=== PATIENT | female | born 1945 | race Caucasian/White ===

== ENCOUNTER 2019-01-21 21:22 | Inpatient (IN) | payer MEDICARE, OTHER ==
[~2019-01-21] VITALS: Ht 144.8 cm; Wt 81.6 kg
--- NOTE | 2019-01-21 21:37 | NUR ---
chest pain- [facility] to ER after family called 911 for chest pain
[2019-01-21 21:52] LABS: BASOPHILS # (AUTO) 0.1 /CMM (0.0-0.2); BASOPHILS % (AUTO) 1.4 % (0.0-2.0); EOSINOPHILS % (AUTO) 1.4 % (0.0-6.0); HEMATOCRIT 35 % (33-45); HEMOGLOBIN 11.8 g/dL (11.5-14.8); LYMPHOCYTES % (AUTO) 32.6 % (20.0-44.0); MEAN CORPUSCULAR HGB CONC 33 g/dl (31.0-36.0); MEAN CORPUSCULAR VOLUME 87 fL (82-100); MONOCYTES # (AUTO) 0.5 /CMM (0.1-1.30); MONOCYTES % (AUTO) 8.6 % (2.0-12.0); NEUTROPHILS # (AUTO) 3.4 /CMM (1.8-8.9); PLATELET COUNT (AUTO) 261 /CMM (150-450); RED BLOOD CELL COUNT(AUTO) 4.06 MIL/uL (4.0-5.2)
[2019-01-21 22:03] LABS: CALCIUM, SERUM 8.7 mg/dL (8.5-10.1); CARBON DIOXIDE 26 mmol/L (21-32); CHLORIDE 102 mmol/L (98-107); CREATININE 0.9 mg/dL (0.6-1.3); GLUCOSE 169 mg/dL (74-106); POTASSIUM 3.3 mmol/L (3.5-5.1); SODIUM SERUM 139 mmol/L (136-145); UREA NITROGEN, BLOOD 17 mg/dL (7-18)
[2019-01-21 22:11] LABS: ALANINE AMINOTRANSFERASE 26 U/L (12-78); ALBUMIN 3.7 g/dL (3.4-5.0); ALKALINE PHOSPHATASE 87 U/L (46-116); ASPARTATE AMINOTRANSFERASE 14 U/L (15-37); BILIRUBIN,TOTAL 0.2 mg/dL (0.2-1.0); TOTAL PROTEIN, SERUM 8.1 g/dL (6.4-8.2)
--- NOTE | 2019-01-21 22:33 | NUR ---
TELE BED 321-2 GIVEN
[2019-01-21] MEDS ORDERED: NITROGLYCERIN PACKET 1 GM PACKET ONE (22:43)
[2019-01-21] MEDS ORDERED: ACETAMINOPHEN 325 MG TABLET ONE (22:43)
--- NOTE | 2019-01-21 22:46 | NUR ---
[facility] CALLED. SENIOR HEALTH EDUCATOR ON THE PHONE WITH ER
--- NOTE | 2019-01-21 22:50 | NUR ---
Pt c/o 05/02 headache with associated hypertension bp 179/88. Dr Davis at bedside for evaluation. Patient medicated as ordered with tylenol 650 and nitrobid 1 gm.
[2019-01-21] MEDS ORDERED: ONDANSETRON HCL/PF 4 MG/2 ML VIAL IVP PRN (23:00)
[2019-01-21] MEDS ORDERED: ACETAMINOPHEN 325 MG TABLET PO ONE (23:00)
[2019-01-21] MEDS ORDERED: NITROGLYCERIN 0.4 MG/TAB BOTTLE SL PRN (23:00)
[2019-01-21] MEDS ORDERED: MORPHINE SULFATE INJ 2 MG/ML DISP.SYRIN IV PRN (23:00)
[2019-01-21] MEDS ORDERED: NITROGLYCERIN PACKET 1 GM PACKET TD ONE (23:00)
--- NOTE | 2019-01-21 23:00 | NUR ---
Report given to nurse Mixon for continuity of care
[2019-01-21 23:15] VITALS: BP 143/79
--- NOTE | 2019-01-21 23:15 | NUR ---
DEPARTMENT MANAGER ADMITTING NOTES RECEIVED PT FROM ER VIA MORALES WITH FAMILY AT BEDSIDE. PT A/O X4, VENEZUELAN SPEAKING. NO S/S OF ACUTE DISTRESS OR SOB NOTED. RESPIRATIONS EVEN AND UNLABORED. PT ABLE TO AMBULATE TO BATHROOM. ORIENTED PT AND FAMILY TO FLOOR. PT ON TELE MONITOR @ [facility] 83. PT DENIES ANY PAIN AT THIS TIME. CALL LIGHT WITHIN REACH. WILL CONTINUE TO MONITOR.
--- NOTE | 2019-01-21 23:30 | NUR ---
ACTUARIAL CONSULTANT NOTES PT REFUSED INITIAL SKIN ASSESSMENT, PT STATES SHE DOES NOT HAVE ANY WOUNDS OR REDNESS.
[2019-01-22] MEDS: CARVEDILOL 6.25 MG TABLET PO SCH ×2 (00:27→10:35)
[2019-01-22] MEDS ORDERED: POTASSIUM CHLORIDE 20 MEQ TAB.PRT.SR PO ONE (01:00)
[2019-01-22 04:00] VITALS: BP 121/61
[2019-01-22 04:57] LABS: BASOPHILS # (AUTO) 0.1 /CMM (0.0-0.2); EOSINOPHILS % (AUTO) 1.5 % (0.0-6.0); HEMATOCRIT 34 % (33-45); HEMOGLOBIN 11.2 g/dL (11.5-14.8); LYMPHOCYTES # (AUTO) 2.4 /CMM (0.8-4.8); MEAN CORPUSCULAR HGB CONC 34 g/dl (31.0-36.0); MEAN CORPUSCULAR VOLUME 88 fL (82-100); MONOCYTES # (AUTO) 0.5 /CMM (0.1-1.30); MONOCYTES % (AUTO) 8.2 % (2.0-12.0); NEUTROPHILS # (AUTO) 3.3 /CMM (1.8-8.9); NEUTROPHILS % (AUTO) 51.3 % (43.0-81.0); PLATELET COUNT (AUTO) 263 /CMM (150-450); RED BLOOD CELL COUNT(AUTO) 3.83 MIL/uL (4.0-5.2); WHITE BLOOD COUNT (AUTO) 6.4 K/uL (4.3-11.0)
[2019-01-22 05:07] LABS: CALCIUM, SERUM 8.7 mg/dL (8.5-10.1); CARBON DIOXIDE 27 mmol/L (21-32); CHLORIDE 105 mmol/L (98-107); CREATININE 0.7 mg/dL (0.6-1.3); GLUCOSE 97 mg/dL (74-106); PHOSPHORUS 4.2 mg/dL (2.5-4.9); POTASSIUM 4.6 mmol/L (3.5-5.1); SODIUM SERUM 140 mmol/L (136-145); UREA NITROGEN, BLOOD 18 mg/dL (7-18)
[2019-01-22 05:22] LABS: CHOLESTEROL 314 mg/dL (<200); HDL CHOLESTEROL 47 mg/dL (40-60); LDL 219 mg/dL (0-99); TRIGLYCERIDES 225 mg/dL (30-150)
--- NOTE | 2019-01-22 06:54 | NUR ---
NETWORK SECURITY ADMINISTRATOR NOTES PT IN BED SLEEPING BUT EASILY AWOKEN VERBALLY OR BY TOUCH. FAMILY AT BEDSIDE. PT A/O X4, PERUVIAN SPEAKING. NO S/S OF ACUTE DISTRESS OR SOB NOTED THROUGHOUT SHIFT. RESPIRATIONS EVEN AND UNLABORED. SAFETY MEASURES IN PLACE, BED IN LOW LOCKED POSITION WITH SIDERAILS UP X2. PT ON TELE MONITOR @ SINUS 77. PT DENIES ANY PAIN AT THIS TIME. CALL LIGHT WITHIN REACH. WILL ENDORSE TO ONCOMING NURSE FOR EDILSON.
[2019-01-22 08:00] VITALS: BP_SYST 151; BP_SYST 157; BP_DIAS 74
[2019-01-22] MEDS ORDERED: ASPIRIN 81 MG TAB.CHEW PO SCH (09:00)
[2019-01-22] MEDS ORDERED: ATORVASTATIN 40 MG TABLET PO SCH (09:00)
[2019-01-22] MEDS ORDERED: GLIM1TAB2 PO (09:03)
[2019-01-22] MEDS ORDERED: METO-356 PO (09:03)
[2019-01-22] MEDS ORDERED: LOSA100T31 PO (09:03)
[2019-01-22] MEDS ORDERED: CLON0.1T PO (09:03)
[2019-01-22] MEDS ORDERED: DEXL60CA3 PO (09:03)
[2019-01-22] MEDS ORDERED: LEVO50TA8 PO (09:03)
[2019-01-22] MEDS ORDERED: ASPI-1169 PO (09:03)
[2019-01-22] MEDS ORDERED: EZET1TAB26 PO (09:03)
[2019-01-22] MEDS ORDERED: BLOO-668 IN (09:05)
[2019-01-22 09:28] LABS: THYROID STIMULATING HORMONE 3.304 uIU/mL (0.358-3.74)
[2019-01-22] MEDS ORDERED: IV NS 0.9% 250 ML IV ONE (11:34)
[2019-01-22] MEDS ORDERED: IOHEXOL-350 100 ML VIAL IV ONE (11:34)
[2019-01-22] MEDS ORDERED: CT SWABBABLE VALVE TRANS SET 1 EA INFUS.SET MC ONE (11:35)
[2019-01-22] MEDS ORDERED: METOPROLOL TARTRATE INJ 5 MG/5 ML AMPUL ONE ×2 (11:35→12:53)
[2019-01-22] MEDS ORDERED: IV NS 0.9% 500 ML IV PRN (13:00)
[2019-01-22] MEDS ORDERED: NITROGLYCERIN 0.4 MG/TAB BOTTLE SL ONE (13:00)
[2019-01-22] MEDS ORDERED: METOPROLOL TARTRATE INJ 5 MG/5 ML AMPUL IVP ONE (13:00)
[2019-01-22 14:00] VITALS: BP 150/76
--- NOTE | 2019-01-22 14:10 | NUR ---
ICU/RN: - S/P CTA Pt tolerated procedure well; s/p CTA, administered total of 50mg IV Metoprolol and nitro SL x1 per protocol. Daughter at bedside, assisting pt with relaxation techniques. Per daughter, pt SBP baseline is in 170's. Pt sent back to room in stable condition with SBP in 150's, report given to BELKYS Hernandez for EDILSON.
--- NOTE | 2019-01-22 16:50 | NUR ---
PATIENT CLEARED FOR D/C TO HOME BY . AWAKE A/O X4 , FAMILY AT BEDSIDE. VS ARE STABLE , BREATHING UNLABORED AND EVEN , NO CHEST PAIN, NO SOB AND ON ROOM AIR. D/C INSTRUCTIONS AND EDUCATION PROVIDED TO PATIENT AND FAMILY: ALL VERBALIZED UNDERSTANDING. PT WILL F/U WITH GRADER TENDER IN ONE WEEK (DR. CHRISTOPHER CONTACT PROVIDED). BELONGINGS REVIEWED AND VALUABLE FORM SIGHED. NO SKIN ISSUES FOUND. IV LINE REMOVED, ID WRIST BAND REMOVED. PATIENT SAFELY TRANSPORTED TO [facility] ACCOMPANIED BY FAMILY.
== END 2019-01-22 16:40 | disposition home or self-care (01) | DRG 305 ==
LOC: ER 21:23 → TELE 22:48
PROVIDERS: ADMIT Internal Medicine
DX: I16.0 Hypertensive urgency (principal); I20.0 Unstable angina; E11.9 Type 2 diabetes mellitus without complications; E03.9 Hypothyroidism, unspecified; E87.6 Hypokalemia; I50.9 Heart failure, unspecified; I11.0 Hypertensive heart disease with heart failure; M19.90 Unspecified osteoarthritis, unspecified site; Z90.710 Acquired absence of both cervix and uterus; Z79.84 Long term (current) use of oral hypoglycemic drugs; M25.512 Pain in left shoulder
CPT/HCPCS: 36415; 71045-TC; 75574; 80048-TC; 80061-TC; 80076-TC; 82728-TC; 83540-TC; 83735-TC; 84100-TC; 84439-TC; 84443-TC; 84484-TC; 85025-TC; 87081-TC; 93307-TC; G0378; J3490; J7050; Q9967